=== PATIENT | male | born 1990 | race African-American/Black ===

== ENCOUNTER 2024-05-31 02:28 | Emergency (ER) | payer SELFPAY ==
[~2024-05-31] VITALS: Ht 190.5 cm; Wt 77.1 kg
[2024-05-31 02:53] VITALS: BP 134/99; TEMP 98.2; O2SAT 96
[2024-05-31] MEDS ORDERED: CYCLOBENZAPRINE 10 MG TABLET ONE (03:23)
[2024-05-31] MEDS ORDERED: HYDROCODONE/APAP 10/325MG TABLET ONE (03:23)
[2024-05-31] MEDS: HYDROCODONE/APAP 10/325MG TABLET PO ONE (03:25)
[2024-05-31] MEDS: CYCLOBENZAPRINE 10 MG TABLET PO ONE (03:25)
== END 2024-05-31 03:44 | disposition home or self-care (01) ==
LOC: ER 02:32
DX: M54.2 Cervicalgia (principal); Z88.6 Allergy status to analgesic agent; Z91.148 Patient's other noncompliance with medication regimen for other reason